=== PATIENT | female | born 1980 | race Hispanic/Latino ===

== ENCOUNTER 2022-02-03 21:57 | Inpatient (IN) | payer MEDICARE ==
[2022-02-03 23:45] VITALS: BMI 42.0
[2022-02-04] MEDS ORDERED: Acetaminophen 650 MG Suppository PR PRN (00:54)
[2022-02-04] MEDS ORDERED: Ondansetron ODT 4 MG TAB PO PRN (00:54)
[2022-02-04] MEDS ORDERED: Ondansetron PF 4 MG/2 ML Vial IVP PRN (00:54)
[2022-02-04] MEDS ORDERED: Acetaminophen 325 MG TAB PO PRN (00:54)
[2022-02-04] MEDS ORDERED: Piperacillin/Tazobactam 3.375 GM in Sodium Chloride 0.9% 100 ML IVPB SCH (01:00)
[2022-02-04] MEDS ORDERED: Piperacillin/Tazobactam 3.375 GM VIAL ONE (01:08)
[2022-02-04] MEDS: Sodium Chloride 0.9% 1,000 ML IV SCH ×3 (01:12→20:57)
[2022-02-04 02:47] LABS: SARS-CoV-2 NAA Rapid Test Not Detected (NotDetected)
[2022-02-04] MEDS: Morphine 4 MG/ML VIAL SLOW IVP PRN ×3 (03:39→23:45)
[2022-02-04] MEDS: Piperacillin/Tazobactam 3.375 GM in Sodium Chloride 0.9% 100 ML IVPB SCH ×3 (04:29→20:57)
[2022-02-04 06:03] LABS: #Basophils 0.1 thou/uL (0.0-0.2); #Eosinphils 0.2 thou/uL (0.0-0.7); #Lymphocytes 3.5 thou/uL (1.20-3.40); #Monocytes 0.8 thou/uL (0.11-0.59); %Basophils 0.4 % (0.0-1.0); %Lymphocytes 22.5 % (21.0-51.0); %Monocytes 5.1 % (0.0-10.0); %Neutrophils 71.1 % (42.0-75.0); Hemoglobin 10.9 g/dL (12.0-16.0); Mean Corpuscular Hemoglobin 24.7 pg (27.0-31.0); Mean Corpuscular Volume 77.1 fL (78.0-98.0); Mean Platelet Volume 8.1 fL (7.4-10.4); Platelet Count 385 thou/uL (130-400); RBC Distribution Width 16.3 % (11.5-14.5); Red Blood Cell (RBC) Count 4.39 mill/uL (4.20-5.40); White Blood Cell (WBC) Count 15.5 thou/uL (4.8-10.8)
[2022-02-04 06:21] LABS: Anion Gap 10 mmol/L (10-20); BUN (Urea Nitrogen) 5 mg/dL (7.0-18.7); Calc. Creatinine Clearance 164 mL/min (70-130); Calcium 9.2 mg/dL (7.8-10.44); Carbon Dioxide 22 mmol/L (22-29); Chloride 107 mmol/L (98-107); Glucose 112 mg/dL (70-105); Potassium 3.2 mmol/L (3.5-5.1); Sodium 136 mmol/L (136-145)
[2022-02-04 08:26] LABS: Iron 18 ug/dL (50-170); Iron Binding Capacity, Total 353 mcg/dL (265-497)
[2022-02-04] MEDS: Enoxaparin Sodium 40 MG/0.4 ML SYRINGE SC SCH (09:22)
[2022-02-04] MEDS ORDERED: Potassium Chloride 20 MEQ TAB PO SCH (09:45)
[2022-02-04] MEDS ORDERED: HYDROcodone/Acetaminophen 5/325 mg Tablet PO PRN (15:51)
[2022-02-04] MEDS ORDERED: LACTINEX 1 TAB PO SCH (20:34)
[2022-02-04] MEDS: Famotidine 20 MG TAB PO SCH (20:55)
[2022-02-05] MEDS: Piperacillin/Tazobactam 3.375 GM in Sodium Chloride 0.9% 100 ML IVPB SCH ×3 (05:09→21:10)
[2022-02-05 05:43] LABS: #Basophils 0.1 thou/uL (0.0-0.2); #Eosinphils 0.3 thou/uL (0.0-0.7); #Lymphocytes 2.9 thou/uL (1.20-3.40); #Monocytes 0.6 thou/uL (0.11-0.59); #Neutrophils 6.8 thou/uL (1.40-6.50); %Basophils 0.5 % (0.0-1.0); %Eosinophils 2.9 % (0.0-10.0); %Lymphocytes 27.3 % (21.0-51.0); %Monocytes 5.3 % (0.0-10.0); Hemoglobin 10.2 g/dL (12.0-16.0); Mean Corpuscular HGB CONC 32.1 g/dL (32.0-36.0); Mean Corpuscular Hemoglobin 24.9 pg (27.0-31.0); Mean Corpuscular Volume 77.6 fL (78.0-98.0); Mean Platelet Volume 7.8 fL (7.4-10.4); Platelet Count 336 thou/uL (130-400); RBC Distribution Width 16.2 % (11.5-14.5); Red Blood Cell (RBC) Count 4.09 mill/uL (4.20-5.40); White Blood Cell (WBC) Count 10.7 thou/uL (4.8-10.8)
[2022-02-05 06:07] LABS: Anion Gap 13 mmol/L (10-20); BUN (Urea Nitrogen) 6 mg/dL (7.0-18.7); Calc. Creatinine Clearance 158 mL/min (70-130); Calcium 9.4 mg/dL (7.8-10.44); Carbon Dioxide 20 mmol/L (22-29); Chloride 108 mmol/L (98-107); Glucose 96 mg/dL (70-105); Potassium 3.8 mmol/L (3.5-5.1); Sodium 137 mmol/L (136-145)
[2022-02-05] MEDS: Famotidine 20 MG TAB PO SCH ×2 (08:42→21:10)
[2022-02-05] MEDS: Enoxaparin Sodium 40 MG/0.4 ML SYRINGE SC SCH (08:42)
[2022-02-05] MEDS: Sodium Chloride 0.9% 1,000 ML IV SCH ×2 (08:43→18:53)
[2022-02-05] MEDS: Floranex 1 GM Packet PO SCH ×2 (15:17→21:10)
[2022-02-05] MEDS: Ferrous Sulfate 325 MG TAB PO SCH (17:57)
[2022-02-05] MEDS ORDERED: CARIPRAZINE HCL 3 MG PO SCH (21:00)
[2022-02-05] MEDS: busPIRone HCl 10 MG TAB PO SCH (21:10)
[2022-02-06] MEDS: Piperacillin/Tazobactam 3.375 GM in Sodium Chloride 0.9% 100 ML IVPB SCH (04:38)
[2022-02-06] MEDS: Sodium Chloride 0.9% 1,000 ML IV SCH (04:44)
[2022-02-06 05:40] LABS: #Eosinphils 0.3 thou/uL (0.0-0.7); #Lymphocytes 2.8 thou/uL (1.20-3.40); #Monocytes 0.6 thou/uL (0.11-0.59); #Neutrophils 5.2 thou/uL (1.40-6.50); %Basophils 0.4 % (0.0-1.0); %Eosinophils 3.8 % (0.0-10.0); %Monocytes 6.2 % (0.0-10.0); %Neutrophils 58.6 % (42.0-75.0); Hemoglobin 10.7 g/dL (12.0-16.0); Mean Corpuscular HGB CONC 31.4 g/dL (32.0-36.0); Mean Corpuscular Hemoglobin 24.5 pg (27.0-31.0); Mean Platelet Volume 8.1 fL (7.4-10.4); Platelet Count 381 thou/uL (130-400); RBC Distribution Width 16.3 % (11.5-14.5); Red Blood Cell (RBC) Count 4.36 mill/uL (4.20-5.40); White Blood Cell (WBC) Count 8.9 thou/uL (4.8-10.8)
[2022-02-06 06:03] LABS: Anion Gap 12 mmol/L (10-20); BUN (Urea Nitrogen) 6 mg/dL (7.0-18.7); Calc. Creatinine Clearance 150 mL/min (70-130); Calcium 9.6 mg/dL (7.8-10.44); Carbon Dioxide 21 mmol/L (22-29); Chloride 108 mmol/L (98-107); Glucose 109 mg/dL (70-105); Potassium 3.8 mmol/L (3.5-5.1); Sodium 137 mmol/L (136-145)
[2022-02-06] MEDS ORDERED: PARoxetine 20 MG TAB PO SCH (09:00)
[2022-02-06] MEDS: Enoxaparin Sodium 40 MG/0.4 ML SYRINGE SC SCH (09:22)
[2022-02-06] MEDS: Floranex 1 GM Packet PO SCH (09:22)
[2022-02-06] MEDS: Ferrous Sulfate 325 MG TAB PO SCH (09:23)
[2022-02-06] MEDS: Famotidine 20 MG TAB PO SCH (09:23)
[2022-02-06] MEDS: busPIRone HCl 10 MG TAB PO SCH (09:23)
[2022-02-06 11:44] VITALS: BP 127/55; TEMP 98.1
== END 2022-02-06 11:59 | disposition home or self-care (01) | DRG 392 ==
LOC: SURG A 23:15 → OBSVTOIN 02-04 14:42
PROVIDERS: ADMIT Student in an Organized Health Care Education/Training Program; ATTEND Hospitalist
DX: K57.32 Diverticulitis of large intestine without perforation or abscess without bleeding (principal); Z20.822 Contact with and (suspected) exposure to COVID-19; H91.90 Unspecified hearing loss, unspecified ear; K80.80 Other cholelithiasis without obstruction; N28.1 Cyst of kidney, acquired; F17.210 Nicotine dependence, cigarettes, uncomplicated; D50.9 Iron deficiency anemia, unspecified; F15.10 Other stimulant abuse, uncomplicated; N83.202 Unspecified ovarian cyst, left side; E87.6 Hypokalemia; Z79.899 Other long term (current) drug therapy; Z90.49 Acquired absence of other specified parts of digestive tract; Z90.710 Acquired absence of both cervix and uterus
CPT/HCPCS: 36415; 36416; 80048; 82728; 83540; 83550; 85025; J1650; J2270; J2405; J2543; J3490; J7050; U0002